=== PATIENT | female | born 1960 | race Caucasian/White ===

== ENCOUNTER 2017-06-11 14:42 | Outpatient (CLI) | payer BC | END 2017-06-11 18:44 | disposition home or self-care (01) | LOC: SMA 14:42 | PROVIDERS: ATTEND Family Medicine | DX: Z12.31 Encounter for screening mammogram for malignant neoplasm of breast (principal) | CPT/HCPCS: G0202 ==

== ENCOUNTER 2018-06-23 14:11 | Outpatient (CLI) | payer BC | END 2018-06-23 21:49 | disposition home or self-care (01) | LOC: SMA 14:11 | PROVIDERS: ATTEND Family Medicine | DX: Z12.31 Encounter for screening mammogram for malignant neoplasm of breast (principal) | CPT/HCPCS: 77067 ==

== ENCOUNTER 2019-07-07 08:18 | Outpatient (CLI) | payer BC | END 2019-07-07 20:38 | disposition home or self-care (01) | LOC: SMA 08:18 | DX: Z12.31 Encounter for screening mammogram for malignant neoplasm of breast (principal) | CPT/HCPCS: 77067 ==

== ENCOUNTER 2020-08-13 13:29 | Outpatient (CLI) | payer BC | END 2020-08-13 20:30 | disposition home or self-care (01) | LOC: SMA 13:29 | PROVIDERS: ATTEND Family Medicine | DX: Z12.31 Encounter for screening mammogram for malignant neoplasm of breast (principal) | CPT/HCPCS: 77067 ==